=== PATIENT | female | born 1990 | race Caucasian/White ===

== ENCOUNTER 2017-01-10 19:37 | Emergency (ER) | payer OTHER ==
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
[2017-01-10] MEDS ORDERED: LET GEL TOPICAL 1 EA SYR TP ONE (20:11)
[2017-01-10 21:20] VITALS: BP 123/83; PULSE 91; RESP 16; TEMP 98.1; O2SAT 94
== END 2017-01-10 21:19 | disposition home or self-care (01) ==
DX: S40.811A Abrasion of right upper arm, initial encounter (principal); S40.812A Abrasion of left upper arm, initial encounter; S80.211A Abrasion, right knee, initial encounter; S80.212A Abrasion, left knee, initial encounter; S00.81XA Abrasion of other part of head, initial encounter; S60.811A Abrasion of right wrist, initial encounter; S60.812A Abrasion of left wrist, initial encounter; V18.0XXA Pedal cycle driver injured in noncollision transport accident in nontraffic accident, initial encounter; Y99.8 Other external cause status; Y93.55 Activity, bike riding